=== PATIENT | female | born 1955 | race Caucasian/White ===

== ENCOUNTER 2019-03-15 13:53 | Emergency (ER) | payer BC ==
[2019-03-15 14:15] VITALS: BP 141/66
--- NOTE | 2019-03-15 14:24 | UC ---
UC General HPI - HPI Summary HPI Summary: pt is c/o frequent bouts with urinary frequency, urgency and raw with urination over the past week. + bladder pressure. states " I had a really bad uti last year" "it made me really sick" that started just like this. + bladder pressure. no fever, abdominal pain, flank pain or vaginal discharge. self tx'ed my "drinking tones of water yesterday". - History of Current Complaint Chief Complaint: UCGU Stated Complaint: URINARY Time Seen by Provider: 03/15/19 14:01 Hx Obtained From: Patient Pain Intensity: 0 - Allergy/Home Medications Allergies/Adverse Reactions: Allergies Allergy/AdvReac Type Severity Reaction Status Date / Time erythromycin base Allergy Hives Verified 03/15/19 14:22 Sulfa (Sulfonamide Allergy Hives Verified 03/15/19 14:22 Antibiotics) amoxicillin [From Augmentin] AdvReac GI Upset Verified 03/15/19 14:22 clavulanic acid AdvReac GI Upset Verified 03/15/19 14:22 [From Augmentin] Home Medications: Home Medications Cholecalciferol TAB* [Vitamin D TAB*] 1,000 unit PO DAILY 03/15/19 [History Confirmed 03/15/19] Cyanocobalamin (Vitamin B-12) [B-12] 2,500 mcg PO DAILY 03/15/19 [History Confirmed 03/15/19] Fexofenadine (NF) [Elizabeth 180 (NF)] 180 mg PO DAILY 03/15/19 [History Confirmed 03/15/19] Coram-3 Fatty Acids/Fish Oil [Fish Oil 1,000 mg Softgel] 4 each PO DAILY [History Confirmed 03/15/19] PMH/Surg Hx/FS Hx/Imm Hx - Additional Past Medical History Additional PMH: UTI's Endocrine History: Dyslipidemia Cardiovascular History: Hypertension - Surgical History Surgical History: Yes Surgery Procedure, Year, and Place: hysterectomy. bladder repair x2/mesh implant. left knee replacement. veins removed - Family History Known Family History: Positive: Non-Contributory - Social History Alcohol Use: None Substance Use Type: None Smoking Status (MU): Never Smoked Tobacco - Immunization History Most Recent Influenza Vaccination: none Review of Systems All Other Systems Reviewed And Are Negative: No Constitutional: Negative: Fever, Chills Gastrointestinal: Negative: Abdominal Pain, Vomiting, Diarrhea, Nausea Genitourinary: Positive: Dysuria, Frequency, Urgency. Negative: Hematuria, Vaginal/Penile Discharge Physical Exam Triage Information Reviewed: Yes Appearance: Well-Appearing Vital Signs: Initial Vital Signs Temp 98.6 F 03/15/19 14:13 Pulse 76 03/15/19 14:13 Resp 17 03/15/19 14:13 BP 141/66 03/15/19 14:13 Pulse Ox 100 03/15/19 14:13 Vital Signs Reviewed: Yes Eyes: Positive: Conjunctiva Clear ENT: Positive: Normal ENT inspection Neck: Positive: Supple Respiratory: Positive: Lungs clear, Normal breath sounds Cardiovascular: Positive: RRR, No Murmur Abdomen Description: Positive: Nontender, No Organomegaly, Soft. Negative: CVA Tenderness (R), CVA Tenderness (L) Bowel Sounds: Positive: Present Musculoskeletal: Positive: ROM Intact Neurological: Positive: Alert Psychological: Positive: Age Appropriate Behavior Skin Exam: Normal Diagnostics - Laboratory Lab Results: u/a=trace leukocytes. culture pending. Course/Dx - Differential Dx - Multi-Symptom Differential Diagnoses: Other - non toxic. no acuteabdomen. based on hx and prior hx will tx for presumptive uti while culture pending. if culture is negative, interstitial cystitis is possible. - Diagnoses Provider Diagnosis: Dysuria Discharge ED - Sign-Out/Discharge Documenting (check all that apply): Patient Departure All imaging exams completed and their final reports reviewed: No Studies - Discharge Plan Condition: Stable Disposition: HOME Prescriptions: Cephalexin CAP* [Keflex CAP*] 500 mg PO BID 7 Days #14 cap Patient Education Materials: Dysuria (ED) Referrals: Mallory Fu NP [Primary Care Provider] - 7 Days - Billing Disposition and Condition Condition: STABLE Disposition: Home
== END 2019-03-15 14:30 | disposition home or self-care (01) ==
LOC: UCCORT 13:53
DX: R30.0 Dysuria (principal); Z87.440 Personal history of urinary (tract) infections; Z88.0 Allergy status to penicillin; Z88.1 Allergy status to other antibiotic agents; Z88.2 Allergy status to sulfonamides; I10 Essential (primary) hypertension
CPT/HCPCS: 81003; 87086; 99202; G0463

== ENCOUNTER 2019-07-31 15:58 | Emergency (ER) | payer BC ==
[2019-07-31 16:40] VITALS: BP 139/70
--- NOTE | 2019-07-31 17:05 | UC ---
Throat Pain/Nasal Anthony HPI - HPI Summary HPI Summary: 64-year-old female who has been ill with head congestion the past 2-3 weeks and now with sinus pressure, postnasal drainage and a sore throat. She has a mild rash to her anterior chest which she states is itchy and which improves with hydrocortisone. - History of Current Complaint Chief Complaint: UCRespiratory Stated Complaint: SORE THROAT, RASH Time Seen by Provider: 07/31/19 16:55 Hx Obtained From: Patient ?: No Onset/Duration: Gradual Onset Severity: Moderate Pain Intensity: 6 Cough: Productive - Occasional productive cough of clear sputum and sometimes yellow sputum which may be postnasal drainage Associated Signs & Symptoms: Positive: Sinus Discomfort, Nasal Discharge - Allergies/Home Medications Allergies/Adverse Reactions: Allergies Allergy/AdvReac Type Severity Reaction Status Date / Time erythromycin base Allergy Hives Verified 07/31/19 16:40 Sulfa (Sulfonamide Allergy Hives Verified 07/31/19 16:40 Antibiotics) amoxicillin [From Augmentin] AdvReac GI Upset Verified 07/31/19 16:40 clavulanic acid AdvReac GI Upset Verified 07/31/19 16:40 [From Augmentin] Home Medications: Home Medications Aspirin 81 mg CHEW TAB* [Aspirin Low Dose TAB*] 81 mg PO DAILY 07/31/19 [ History Confirmed 07/31/19] PMH/Surg Hx/FS Hx/Imm Hx Previously Healthy: Yes Endocrine History: Dyslipidemia - Surgical History Surgical History: Yes Surgery Procedure, Year, and Place: hysterectomy. bladder repair x2/mesh implant. left knee replacement. veins removed - Family History Known Family History: Positive: Non-Contributory - Social History Lives: With Family Alcohol Use: Rare Substance Use Type: None Smoking Status (MU): Never Smoked Tobacco - Immunization History Most Recent Influenza Vaccination: none Review of Systems All Other Systems Reviewed And Are Negative: Yes Skin: Positive: Rash - Mild itchy rash to upper chest over the past couple of days ENT: Positive: Nasal Discharge, Sinus Congestion, Sinus Pain/Tenderness Respiratory: Positive: Cough - Occasional productive cough of clear sputum. Is Patient Immunocompromised?: No Physical Exam Triage Information Reviewed: Yes Appearance: Well-Appearing, No Pain Distress, Well-Nourished Vital Signs: Initial Vital Signs Temp 97.9 F 07/31/19 16:37 Pulse 74 01/20/20 16:37 Resp 18 07/31/19 16:37 BP 139/70 07/31/19 16:37 Pulse Ox 100 07/31/19 16:37 Vital Signs Reviewed: Yes Eyes: Positive: Conjunctiva Clear ENT: Positive: Hearing grossly normal, Pharynx normal - Yellow postnasal drainage, Pharyngeal erythema - Minimal pharyngeal erythema, Nasal congestion - Yellow nasal coryza., TMs normal, Sinus tenderness - Tender over the maxillary sinuses bilaterally., Uvula midline Neck: Positive: Supple, Nontender, No Lymphadenopathy Respiratory: Positive: Lungs clear, Normal breath sounds, No respiratory distress, No accessory muscle use Cardiovascular: Positive: RRR, No Murmur, Pulses Normal, Brisk Capillary Refill Musculoskeletal Exam: Normal Neurological Exam: Normal Psychological Exam: Normal Skin: Positive: Rashes - Patient has a mildly textured rash to upper chest but nowhere else. I don't feel this is a strep rash. Throat Pain/Nasal Course/Dx - Course Course Of Treatment: Rapid strep test: Negative I'm going to treat the patient for sinus infection. She is allergic to Augmentin but not to amoxicillin. Her allergy is actually just diarrhea from Augmentin and it bothers her stomach. She has been able to take amoxicillin in the past. - Differential Dx/Diagnosis Provider Diagnosis: Pharyngitis, Sinusitis Discharge ED - Sign-Out/Discharge Documenting (check all that apply): Patient Departure All imaging exams completed and their final reports reviewed: No Studies - Discharge Plan Condition: Good Disposition: HOME Prescriptions: Amoxicillin PO (*) [Amoxicillin 875 MG (*)] 875 mg PO BID 10 Days #20 tab Patient Education Materials: Sinusitis (ED) Referrals: [facility] [Outside] No Primary Care Phys,NOPCP [Primary Care Provider] - Additional Instructions: Increase fluids, [id number] cold medicines, take Benadryl 25-50 mg every 6 hours as needed for the itchy rash. Continue your present medications. Follow-up with your primary care provider or [facility] if no improvement by Wednesday. - Billing Disposition and Condition Condition: GOOD Disposition: Home
== END 2019-07-31 17:12 | disposition home or self-care (01) ==
LOC: UCCORT 15:58
DX: J32.9 Chronic sinusitis, unspecified (principal); J02.9 Acute pharyngitis, unspecified; R21 Rash and other nonspecific skin eruption; Z88.0 Allergy status to penicillin; Z88.1 Allergy status to other antibiotic agents; Z88.2 Allergy status to sulfonamides; Z79.82 Long term (current) use of aspirin
CPT/HCPCS: 87651; 99212; G0463